=== PATIENT | male | born 1980 | race Caucasian/White ===

== ENCOUNTER 2020-04-10 19:41 | Emergency (ER) | payer BC ==
[2020-04-10 20:01] VITALS: PULSE 98
--- NOTE | 2020-04-10 20:22 | EDM.PDOC ---
ED HPI GENERAL MEDICAL PROBLEM - General Chief Complaint: Lower Extremity Injury/Pain Stated Complaint: INJURED ACHILLES Time Seen by Provider: 04/10/20 19:58 - History of Present Illness INITIAL COMMENTS - FREE TEXT/NARRATIVE: History of present illness: 39-year-old male presenting with left posterior ankle pain, concerned for possible Achilles tendon rupture. He was playing softball when he stepped quickly to catch a ball and felt a sudden pop and severe pain in the back of his ankle. He said he felt like somebody kicked him in that area. He has been able to stand and bear weight since then and still has pain but the pain has lessened. Review of systems: As per history of present illness and below otherwise all systems reviewed and negative. Past medical history: As per history of present illness and as reviewed below otherwise noncontributory. Surgical history: As per history of present illness and as reviewed below otherwise noncontributory. Back surgery Social history: No reported history of drug or alcohol abuse, occasional social alcohol use. No tobacco. Family history: As per history of present illness and as reviewed below otherwise noncontributory. Physical exam: GEN: no acute distress, well appearing HEENT: Atraumatic, normocephalic, mucous membranes moist Neck: supple, nontender. Lungs: No respiratory distress. Heart: RRR Back: nontender Extremities: Left leg: Tenderness over the Achilles tendon. There does appear to be a tendon defect. On gastrocnemius compression, no plantar flexion. No bony tenderness. Patient did have pain with gastrocnemius compression. With flexed knee at 90 degrees, the patient was able to plantar flex. Right lower extremity and both upper extremities unremarkable. Neurovascularly intact. Neuro: Awake, alert, oriented. Neuro Exam nonfocal. Skin: warm, dry, no lesions Diagnostics: Leg ultrasound Therapeutics: Patient declined pain medications MDM: Impression: [] Plan: [] Definitive disposition and diagnosis as appropriate pending reevaluation and review of above. left achilles Pain Score (Numeric/FACES): 3 - Related Data Allergies Allergy/AdvReac Type Severity Reaction Status Date / Time No Known Allergies Allergy Verified 04/10/20 20:01 Home Meds: Home Meds . [No Known Home Meds] 04/10/20 [History] Past Medical History - Infectious Disease History Infectious Disease History: Reports: Chicken Pox - Past Surgical History HEENT Surgical History: Reports: Tonsillectomy Other HEENT Surgeries/Procedures: lasik Musculoskeletal Surgical History: Reports: Other (See Below) Other Musculoskeletal Surgeries/Procedures:: back surgery Social & Family History - Family History Family Medical History: Noncontributory - Tobacco Use Smoking Status *Q: Never Smoker - Recreational Drug Use Recreational Drug Use: No Review of Systems - Review of Systems Review Of Systems: See Below (See HPI) ED EXAM, GENERAL - Physical Exam Exam: See Below (See HPI) Course - Vital Signs Text/Narrative:: Left heel pain, likely Achilles tendon rupture, likely partial as the patient does still have some plantar flexion ability. Ultrasound pending Will place in a short leg splint in plantar flexion and refer to orthopedics. Ultrasound questioning complete Achilles tendon tear. Will fully immobilize. Crutches given. Last Recorded V/S: Last Vital Signs Temp 96.9 F 04/10/20 19:58 Pulse 98 04/10/20 19:58 Resp 17 04/10/20 19:58 BP 159/119 H 04/10/20 19:58 Pulse Ox 93 L 04/10/20 19:58 - Orders/Labs/Meds Orders: Active Orders 24 hr Category Date Time Status Splinting [RC] ASDIRECTED Care 04/10/20 20:29 Active DME for Discharge [COMM] Stat Oth 04/10/20 20:29 Ordered - Re-Assessments/Exams Free Text/Narrative Re-Assessment/Exam: 04/10/20 21:47 Patient feeling well, comfortable, discussed results of the ultrasound with the patient and need for immobilization and orthopedic surgery follow-up. Departure - Departure Time of Disposition: 21:39 Disposition: Home, Self-Care 01 Clinical Impression: Complete rupture of left Achilles tendon - Discharge Information Instructions: Achilles Tendon Tear, Achilles Tendon Tear Repair, How to Use Cold Therapy, [id number] Referrals: Alcon Inman MD [Primary Care Provider] - Forms: ED Department Discharge Additional Instructions: The following information is given to patients seen in the emergency department who are being discharged to home. This information is to outline your options for follow-up care. We provide all patients seen in our emergency department with a follow-up referral. The need for follow-up, as well as the timing and circumstances, are variable de pending upon the specifics of your emergency department visit. If you don't have a primary care physician on staff, we will provide you with a referral. We always advise you to contact your personal physician following an emergency department visit to inform them of the circumstance of the visit and for follow-up with them and/or the need for any referrals to a consulting specialist. The emergency department will also refer you to a specialist when appropriate. This referral assures that you have the opportunity for follow-up care with a specialist. All of these measure are taken in an effort to provide you with optimal care, which includes your follow-up. Under all circumstances we always encourage you to contact your private physician who remains a resource for coordinating your care. When calling for follow-up care, please make the office aware that this follow-up is from your recent emergency room visit. If for any reason you are refused follow-up, please contact the [facility] Emergency Department at and asked to speak to the emergency department charge nurse. [facility] [address], [address] [place] [address] Sepsis Event Note (ED) - Evaluation Sepsis Screening Result: No Definite Risk - Focused Exam Vital Signs: Vital Signs Temp Pulse Resp BP Pulse Ox 04/10/20 19:58 96.9 F 98 17 159/119 H 93 L - My Orders Last 24 Hours: My Active Orders 04/10/20 20:29 Splinting [RC] ASDIRECTED DME for Discharge [COMM] Stat - Assessment/Plan Last 24 Hours: My Active Orders 04/10/20 20:29 Splinting [RC] ASDIRECTED DME for Discharge [COMM] Stat
--- NOTE | 2020-04-10 21:31 | US ---
Achilles tendon ultrasound: Multiple real-time images of the Achilles tendon were obtained. Tendon gap is noted within the Achilles tendon which is felt compatible with complete tear. Impression: 1. Complete Achilles tendon tear. Diagnostic code #3 This report was dictated in MDT
[2020-04-11 00:04] VITALS: BP 140/100
== END 2020-04-10 22:20 | disposition home or self-care (01) ==
LOC: MW.ED 19:41
DX: S86.012A Strain of left Achilles tendon, initial encounter (principal); X58.XXXA Exposure to other specified factors, initial encounter; Y93.64 Activity, baseball
CPT/HCPCS: 29515; 76881-26-LT; 76881-LT; 99282; 99283-25

== ENCOUNTER 2023-05-15 20:31 | Emergency (ER) | payer BC ==
[2023-05-15] MEDS ORDERED: Sodium Chloride 0.9% 1,000 ML IV ONE (20:40)
[2023-05-15] MEDS ORDERED: Sodium Chloride 0.9% 10 ML Syringe FLUSH PRN (20:40)
[2023-05-15] MEDS ORDERED: Sodium Chloride 0.9% 2.5 ML Syringe FLUSH PRN (20:40)
[2023-05-15 20:44] LABS: BASOPHILS PERCENT AUTO 0.1 % (0.0-1.5); EOSINOPHILS ABSOLUTE AUTO 0.3 K/uL (0.0-0.7); EOSINOPHILS PERCENT AUTO 2.5 % (0.0-7.0); HEMATOCRIT 39.2 % (38.0-50.0); HEMOGLOBIN 13.7 g/dL (13.0-17.0); LYMPHOCYTES ABSOLUTE AUTO 4.6 K/uL (0.6-2.4); MEAN CORPUSCULAR HEMOGLOBIN 31.5 pg (27.0-32.0); MEAN CORPUSCULAR HGB CONC 34.9 g/dL (31.0-37.0); MEAN CORPUSCULAR VOLUME 90.1 fL (80.0-98.0); MONOCYTES ABSOLUTE AUTO 0.8 K/uL (0.0-0.8); MONOCYTES PERCENT AUTO 7.6 % (0.0-15.0); NEUTROPHILS ABSOLUTE AUTO 4.7 K/uL (1.4-5.7); NEUTROPHILS PERCENT AUTO 45.8 % (48.0-80.0); NRBC ABSOLUTE 0 K/uL; PLATELET COUNT,PLT 200 K/uL (150-400); RED BLOOD CELL COUNT 4.35 M/uL (4.50-5.90); WHITE BLOOD CELL COUNT,WBC 10.34 K/uL (4.0-11.0)
[2023-05-15] MEDS ORDERED: Diphtheria,Pertussis(Acell),Tetanus Vaccine 0.5 ML Syringe IM ONE (20:44)
[2023-05-15 21:01] VITALS: BP 169/104; PULSE 77
[2023-05-15 21:04] LABS: A/G RATIO 1.1 (0.9-1.6); ALBUMIN 3.9 g/dL (3.4-5.0); BILIRUBIN TOTAL 0.4 mg/dL (0.2-1.0); CALCIUM 8.3 mg/dL (8.5-10.1); CARBON DIOXIDE,CO2 25.8 mmol/L (21.0-32.0); CREATININE 0.9 mg/dL (0.8-1.3); EST CRCL DRUG DOSING (CG) 118.37 mL/min; POTASSIUM,K 2.5 mmol/L (3.5-5.1); PROTEIN TOTAL,TP 7.6 g/dL (6.4-8.2)
[2023-05-15] MEDS ORDERED: Potassium Chloride 20 MEQ in Premix Bag 1 BAG IV ONE (21:07)
[2023-05-15] MEDS ORDERED: Acetaminophen 1,000 MG in Premix Bag 1 BAG IV ONE (22:44)
[2023-05-15] MEDS ORDERED: niCARdipine/Normal Saline 20 MG/200 ML BAG IV SCH (23:00)
== END 2023-05-15 23:35 ==
LOC: MW.ED 20:31
DX: S06.6XAA Traumatic subarachnoid hemorrhage with loss of consciousness status unknown, initial encounter (principal); S02.91XA Unspecified fracture of skull, initial encounter for closed fracture; F10.90 Alcohol use, unspecified, uncomplicated; Z79.899 Other long term (current) drug therapy; Y04.0XXA Assault by unarmed brawl or fight, initial encounter
CPT/HCPCS: 36415; 70450; 70486; 71045; 72125; 80053; 80307; 85025; 85610; 90471; 90715; 96365; 96366; 96368; 96375; 99285; J0131; J3480; J3490; J7030

== ENCOUNTER 2023-05-18 11:07 | Emergency (ER) | payer BC ==
[2023-05-18] MEDS ORDERED: Ondansetron 4 MG Tab.DIS PO ONE (12:25)
[2023-05-18] MEDS ORDERED: Acetaminophen 500 MG Tab PO ONE (12:26)
[2023-05-18] MEDS ORDERED: Metoprolol Succinate 50 MG Tab.ER PO ONE (12:26)
[2023-05-18] MEDS ORDERED: Lisinopril 10 MG Tab PO ONE (12:27)
[2023-05-18] MEDS ORDERED: Sodium Chloride 0.9% 1,000 ML IV ONE (12:52)
[2023-05-18 13:50] VITALS: PULSE 56
[2023-05-18 14:27] VITALS: BP 159/93
== END 2023-05-18 14:27 | disposition home or self-care (01) ==
LOC: MW.ED 11:07
DX: S02.19XD Other fracture of base of skull, subsequent encounter for fracture with routine healing (principal); I60.9 Nontraumatic subarachnoid hemorrhage, unspecified; R11.0 Nausea; I10 Essential (primary) hypertension; Z79.899 Other long term (current) drug therapy; Y09 Assault by unspecified means
CPT/HCPCS: 96360; 99283; A9270; J7030

== ENCOUNTER 2023-05-22 11:09 | Emergency (ER) | payer BC ==
[2023-05-22] MEDS ORDERED: Sodium Chloride 0.9% 2.5 ML Syringe FLUSH PRN (11:32)
[2023-05-22] MEDS ORDERED: Sodium Chloride 0.9% 10 ML Syringe FLUSH PRN (11:32)
[2023-05-22] MEDS ORDERED: Sodium Chloride 0.9% 20 ML SDV IV PRN (11:32)
[2023-05-22 11:47] LABS: EOSINOPHILS ABSOLUTE AUTO 0.1 K/uL (0.0-0.7); EOSINOPHILS PERCENT AUTO 0.5 % (0.0-7.0); HEMATOCRIT 39.2 % (38.0-50.0); HEMOGLOBIN 14.4 g/dL (13.0-17.0); LYMPHOCYTES ABSOLUTE AUTO 1.1 K/uL (0.6-2.4); MEAN CORPUSCULAR HEMOGLOBIN 31.1 pg (27.0-32.0); MEAN CORPUSCULAR HGB CONC 36.7 g/dL (31.0-37.0); MEAN CORPUSCULAR VOLUME 84.7 fL (80.0-98.0); MONOCYTES ABSOLUTE AUTO 1.1 K/uL (0.0-0.8); NEUTROPHILS ABSOLUTE AUTO 7.5 K/uL (1.4-5.7); NEUTROPHILS PERCENT AUTO 77.5 % (48.0-80.0); NRBC ABSOLUTE 0 K/uL; PLATELET COUNT,PLT 249 K/uL (150-400); RED BLOOD CELL COUNT 4.63 M/uL (4.50-5.90); WHITE BLOOD CELL COUNT,WBC 9.72 K/uL (4.0-11.0)
[2023-05-22 11:58] LABS: INR 1.06 (0.86-1.11)
[2023-05-22 12:05] LABS: ALBUMIN 4.4 g/dL (3.4-5.0); CALCIUM 9.4 mg/dL (8.5-10.1); CARBON DIOXIDE,CO2 26.5 mmol/L (21.0-32.0); CREATININE 0.7 mg/dL (0.8-1.3); EST CRCL DRUG DOSING (CG) 152.19 mL/min; POTASSIUM,K 3.5 mmol/L (3.5-5.1); PROTEIN TOTAL,TP 8.8 g/dL (6.4-8.2)
[2023-05-22] MEDS ORDERED: Sodium Chloride 3% 500 ML IV SCH (12:15)
[2023-05-22 14:18] LABS: APPEARANCE,URINE CLEAR; BILIRUBIN,URINE NEGATIVE (NEGATIVE); COLOR,URINE YELLOW; GLUCOSE,URINE NEGATIVE (NEGATIVE); KETONES,URINE >=80 mg/dL (NEGATIVE); LEUKOCYTE ESTERASE,URINE NEGATIVE (NEGATIVE); NITRITE,URINE NEGATIVE (NEGATIVE); OCCULT BLOOD,URINE TRACE-INTACT (NEGATIVE); PROTEIN,URINE 30 mg/dL (NEGATIVE); UROBILINOGEN,URINE 0.2 EU/dL (<2.0)
[2023-05-22 14:28] LABS: BACTERIA,URINE RARE (NEGATIVE); EPITHELIAL CELLS,URINE RARE (NONE-FEW); WBC,URINE 0-2 (0-5/HPF)
[2023-05-22 14:29] LABS: MUCUS,URINE LIGHT (NONE-MOD)
[2023-05-22 15:06] LABS: CALCIUM 8.9 mg/dL (8.5-10.1); CARBON DIOXIDE,CO2 24.2 mmol/L (21.0-32.0); CREATININE 0.7 mg/dL (0.8-1.3); EST CRCL DRUG DOSING (CG) 152.19 mL/min; POTASSIUM,K 3.8 mmol/L (3.5-5.1)
[2023-05-22] MEDS ORDERED: Iopamidol 755 Mg/ML 100 ML Bottle IVPUSH ONE (17:39)
[2023-05-22 18:29] VITALS: BP 153/76; PULSE 76
== END 2023-05-22 16:38 ==
LOC: MW.ED 11:09
DX: S06.33AA Contusion and laceration of cerebrum, unspecified, with loss of consciousness status unknown, initial encounter (principal); R47.01 Aphasia; E87.1 Hypo-osmolality and hyponatremia; X58.XXXA Exposure to other specified factors, initial encounter
CPT/HCPCS: 36415; 70450; 70496; 70498; 80048; 80053; 81001; 82570; 82947; 83935; 84300; 85025; 85610; 85730; 93005; 96360; 96361; 99291; J3490; J7131; Q9967; 93010; 99285